=== PATIENT | female | born 1995 | race Caucasian/White ===

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

== ENCOUNTER 2019-07-05 19:59 | Emergency (ER) | payer MEDICAID ==
[~2019-07-05] VITALS: Ht 162.6 cm; Wt 77.3 kg
[2019-07-05] MEDS ORDERED: IBUPROFEN 600 MG TABLET PO ONE (21:15)
[2019-07-05] MEDS ORDERED: CEPHALEXIN MONOHYDRATE 500 MG CAPSULE PO ONE (21:15)
[2019-07-05 21:48] VITALS: BP 129/65
== END 2019-07-05 21:57 | disposition home or self-care (01) ==
LOC: EMS 20:00
DX: L72.0 Epidermal cyst (principal)